=== PATIENT | male | born 1985 | race Caucasian/White ===

== ENCOUNTER 2018-11-21 12:38 | Emergency (ER) | payer MEDICAID ==
[2018-11-21] MEDS ORDERED: 0.9 % SODIUM CHLORIDE 1000ML 1,000 ML IV ONE (13:19)
[2018-11-21] MEDS ORDERED: PROMETHAZINE HCL 25 MG in 0.9 % SODIUM CHLORIDE 100ML 100 ML IVPB ONE (13:35)
[2018-11-21 13:36] LABS: HEMATOCRIT 48.5 % (42.0-52.0); HEMOGLOBIN 16.8 gm/dl (14.0-18.0); MEAN CELL VOLUME 86.6 fl (81-97); MEAN CORPUSCULAR HGB CONC 34.6 g/dl (32-36); MEAN PLATELET VOLUME 9.7 fl (7.4-10.4); PLATELET COUNT 370 K/uL (130-400); WHITE BLOOD COUNT W/O DIFF 7.3 K/uL (4.2-12.2)
[2018-11-21 13:36] LABS: URINE APPEARANCE CLEAR; URINE BILIRUBIN SMALL (NEGATIVE); URINE BLOOD NEGATIVE (NEGATIVE); URINE COLOR YELLOW; URINE GLUCOSE (UA) NEGATIVE (NEGATIVE); URINE KETONE NEGATIVE (NEGATIVE); URINE LEUKOCYTE ESTERASE NEGATIVE (NEGATIVE); URINE NITRITE NEGATIVE (NEGATIVE); URINE PROTEIN TRACE (NEGATIVE); URINE UROBILINOGEN 0.2 E.U./dL (0.20 - 1.00)
--- NOTE | 2018-11-21 13:41 | Emergency Department Record ---
History of Present Illness - General Chief Complaint: Abdominal Pain Stated Complaint: ABD PAIN/VOMITING FEVER Time Seen by Provider: 11/21/18 13:35 Mode of Arrival: Ambulatory - History of Present Illness Initial Comments: Pt with complaint of 3 days of vomiting followed by diarrhea. Continues daily after any attempt to eat of drink. Seen 2 days ago at Urgent Care without improvement. No fever. Pain in lower abdomen which is sharp in nature and comes and goes. No blood in stool or emesis. No recent illness, travel, AB unse, new foods. No sick contacts. No hx abd surgery, no DM or chronic disease. Non smoker that uses marijuana daily for anxiety. Social alcohol with no recent heavy alcohol use. Onset/Timin -: Days(s) Location: Periumbilical Radiation: LLQ, RLQ Severity scale (1-10): 6 Quality: Sharp, Stabbing Consistency: Intermittent Improves With: Nothing Worsens With: Nothing - Related Data Home Medications Medication Instructions Recorded Confirmed Last Taken Ondansetron HCl [Zofran] 1 tab PO Q8H 11/21/18 11/21/18 11/20/18 Previous Rx's Medication Instructions Recorded Promethazine HCl [Phenergan] 25 mg PO Q6HR PRN 4 Days #10 tablet 11/21/18 Allergies Allergy/AdvReac Type Severity Reaction Status Date / Time No Known Drug Allergies Allergy Verified 11/21/18 13:15 Travel Screening - Travel/Exposure Within Last 30 Days Have you traveled within the last 30 days?: No - Travel/Exposure Within Last Year Have you traveled outside the [place] in the last year?: No - Additonal Travel Details Have you been exposed to anyone with a communicable illness?: No Review of Systems Constitutional: Reports: Weakness. Denies: Chills, Fever Eyes: Denies: Eye discharge, Photophobia ENT: Denies: Congestion, Ear pain Respiratory: Denies: Cough, Dyspnea, Wheezes Cardiovascular: Denies: Arrhythmia, Chest pain, Syncope Endocrine: Reports: Polydipsia. Denies: Fatigue Gastrointestinal: Reports: As per HPI, Abdominal pain, Diarrhea, Nausea, Vomiting. Denies: Hematemesis, Hematochezia, Melena Genitourinary: Denies: Discharge, Frequency, Hematuria Musculoskeletal: Denies: Arthralgia, Gout Skin: Denies: Bruising Neurological: Denies: Abnormal gait, Numbness, Weakness Psychiatric: Denies: Anxiety Hematological/Lymphatic: Denies: Anemia Past Medical History - SOCIAL HISTORY Smoking Status: Former smoker Alcohol Use: Occasional Drug Use: Heavy Drug Use Detail:: Marijuana - RESPIRATORY Hx Respiratory Disorders: No - CARDIOVASCULAR Hx Cardio Disorders: No - NEURO Hx Neuro Disorders: No - GI Hx GI Disorders: Yes Hx Ulcer: Yes Comment:: frequent random diarrhea - Hx Genitourinary Disorders: No - ENDOCRINE Hx Endocrine Disorders: No - MUSCULOSKELETAL Hx Musculoskeletal Disorders: No - PSYCH Hx Psych Problems: Yes Hx Anxiety: Yes - HEMATOLOGY/ONCOLOGY Hx Hematology/Oncology Disorders: No Family Medical History Any Significant Family History?: No Physical Exam - General General Appearance: Alert, Oriented x3, Cooperative, No acute distress - Head Head exam: Atraumatic, Normal inspection - Eye Eye exam: Normal appearance, PERRL - ENT ENT exam: Normal exam, Mucous membranes moist, Normal external ear exam, Normal orophraynx, TM's normal bilaterally - Neck Neck exam: Normal inspection, Full ROM. negative: Tenderness - Respiratory Respiratory exam: Normal lung sounds bilaterally. negative: Respiratory distress - Cardiovascular Cardiovascular Exam: Regular rate, Normal rhythm, Normal heart sounds - GI/Abdominal GI/Abdominal exam: Soft, Normal bowel sounds, Tenderness. negative: Distended, Guarding, Rebound - Extremities Extremities exam: Normal inspection, Full ROM, Normal capillary refill. negative: Tenderness - Back Back exam: Reports: Normal inspection, Full ROM. Denies: Muscle spasm, Rash noted, Tenderness - Neurological Neurological exam: Alert, Normal gait, Oriented X3 - Psychiatric Psychiatric exam: Normal affect, Normal mood - Skin Skin exam: Normal color. negative: Rash Course Vital Signs 11/21/18 13:58 Temperature 98.3 F Pulse Rate 84 Respiratory 16 Rate Blood Pressure 134/83 Pulse Ox 96 - Reevaluation(s) Reevaluation #1: 11/21/18 14:10 Labs reviewed and normal. Pt feeling much improved with little "to no" abdominal pains. Continued IV hydration. Medical Decision Making - Lab Data Result diagrams: 11/21/18 13:14 11/21/18 13:14 Disposition Disposition: Discharge Clinical Impression: Gastroenteritis Disposition: Home, Self-Care Condition: (2) Stable Instructions: Clear Liquid Diet (ED), Gastroenteritis (ED) Additional Instructions: Use Phergan for nausea and a clear liquid diet for 24 hours. Increase diet as tolerated. Family doctor recheck in 1-2 days. Return to the ED at any time if worse or concerns. Prescriptions: Promethazine HCl [Phenergan] 25 mg PO Q6HR PRN 4 Days #10 tablet PRN Reason: Nausea/Vomiting Forms: Patient Portal Access Time of Disposition: 14:46 Quality - Quality Measures Quality Measures: N/A - Blood Pressure Screening Does Patient Have Any of the Following: No Blood Pressure Classification: Pre-Hypertensive BP Reading Systolic Measurement: 134 Diastolic Measurement: 83 Screening for High Blood Pressure: < Pre-Hypertensive BP, F/U Documented > [ G8950] Pre-Hypertensive Follow-up Interventions: Follow-up with rescreen every year.
[2018-11-21] MEDS ORDERED: 0.9 % SODIUM CHLORIDE 1,000 ML BAG IV ONE (13:45)
[2018-11-21 13:49] LABS: BLOOD UREA NITROGEN 15 mg/dL (6-20); CREATININE 0.8 mg/dL (0.7-1.2); EST GLOMERULAR FILTRATION RATE > 60 mL/min
[2018-11-21 13:50] LABS: TOTAL PROTEIN 7.5 g/dL (6.6-8.7)
[2018-11-21 13:51] LABS: PLATELET ESTIMATE NORMAL (NORMAL)
[2018-11-21 13:52] LABS: GLUCOSE,RANDOM 102 mg/dL (74-109)
[2018-11-21 13:54] LABS: ALB/GLOB RATIO 1.3 (1.1-1.8); ALBUMIN 4.3 g/dL (4.0-5.0); ALT/SGPT 17 U/L (<41); AST/SGOT 20 U/L (10.0-50.0)
[2018-11-21 13:55] LABS: ALKALINE PHOSPHATASE 66 U/L (55-149)
== END 2018-11-21 15:07 | disposition home or self-care (01) ==
LOC: ER 12:38
DX: K52.9 Noninfective gastroenteritis and colitis, unspecified (principal); R11.11 Vomiting without nausea; R10.33 Periumbilical pain; Z87.891 Personal history of nicotine dependence
CPT/HCPCS: 80053; 81003; 85027; 96361; 96365; 99284; J2550; J7030

== ENCOUNTER 2019-11-02 20:40 | Emergency (ER) | payer MEDICAID ==
[2019-11-02] MEDS ORDERED: DEXAMETHASONE SOD PHOSPHATE 10MG/ML VIAL PO ONE (20:48)
--- NOTE | 2019-11-02 20:53 | Emergency Department Record ---
History of Present Illness - General Chief Complaint: Ankle/Foot Injury Stated Complaint: RT BIG TOE PAIN Time Seen by Provider: 11/02/19 20:47 Source: Patient Mode of Arrival: Ambulatory Limitations: No limitations - History of Present Illness Initial Comments: 33 yo male presents with left first MTP pain. He denies any known trauma. The area has gradually become more painful with some mild redness. No streaking. The skin is intact. The area of pain, redness and swelling is isolated to the first MTP. No history of gout or other types of arthritis. He works a job on his feet for long hours. No medications and no allergies. MD Complaint: Other -: Days(s) Injury: Toes: Left Type of Injury: Unknown Place: Home Severity: Moderate Improves With: Immobilization Worsens With: Movement, Palpation, Weight bearing Context: Other Other Symptoms: Other Associated Symptoms: Able to partially bear weight - Related Data Previous Rx's Medication Instructions Recorded Methylprednisolone [Medrol Dose 4 mg PO DAILY #1 tab.barb 11/02/19 Pack] Naproxen [Naprosyn] 500 mg PO Q12H #20 tab. 11/02/19 Allergies Allergy/AdvReac Type Severity Reaction Status Date / Time No Known Drug Allergies Allergy Verified 11/02/19 21:06 Review of Systems Constitutional: Denies: Chills, Fever, Malaise, Weakness Eyes: Denies: Eye discharge ENT: Denies: Congestion, Throat pain Respiratory: Denies: Cough, Dyspnea Cardiovascular: Denies: Chest pain, Palpitations, Syncope Endocrine: Denies: Fatigue Gastrointestinal: Denies: Abdominal pain, Diarrhea, Nausea, Vomiting Genitourinary: Denies: Dysuria, Frequency, Hematuria Musculoskeletal: Reports: As per HPI, Arthralgia, Joint swelling Skin: Reports: As per HPI, Change in color. Denies: Bruising Neurological: Denies: Numbness, Tingling, Tremors Psychiatric: Denies: Anxiety Hematological/Lymphatic: Denies: Easy bleeding, Easy bruising Past Medical History - SOCIAL HISTORY Smoking Status: Former smoker Drug Use: Heavy Drug Use Detail:: Marijuana - RESPIRATORY Hx Respiratory Disorders: No - CARDIOVASCULAR Hx Cardio Disorders: No - NEURO Hx Neuro Disorders: No - GI Hx GI Disorders: Yes Hx Ulcer: Yes Comment:: frequent random diarrhea - Hx Genitourinary Disorders: No - ENDOCRINE Hx Endocrine Disorders: No - MUSCULOSKELETAL Hx Musculoskeletal Disorders: No - PSYCH Hx Psych Problems: Yes Hx Anxiety: Yes - HEMATOLOGY/ONCOLOGY Hx Hematology/Oncology Disorders: No Physical Exam - General General Appearance: Alert, Oriented x3, Cooperative, No acute distress Limitations: No limitations - Head Head exam: Atraumatic - Eye Eye exam: Normal appearance - ENT ENT exam: Normal exam Ear exam: Normal external inspection Nasal Exam: Normal inspection Mouth exam: Normal external inspection - Neck Neck exam: Normal inspection - Cardiovascular Peripheral Pulses: 2+: Dorsalis Pedis (L) - Rectal Rectal exam: Deferred - exam: Deferred - Extremities Extremities exam: Full ROM, Joint swelling, Normal capillary refill, Tenderness. negative: Normal inspection, Calf tenderness, Pedal edema Image of Feet: 1 - mild swelling, mild erythema, tender at the MTP, nail intact, CR is brisk, no mid foot tenderness, no calf tenderness - Neurological Neurological exam: Normal gait, Oriented X3. negative: Motor sensory deficit - Psychiatric Psychiatric exam: Normal affect, Normal mood. negative: Agitated, Anxious - Skin Skin exam: Erythema Course CBC is normal - Reevaluation(s) Reevaluation #1: 11/02/19 21:23 The Uric Acid is elevated at 8.3 Clinically this is consistent with gout and on lab He will be given a medrol dose pack and follow up with PCP He will be provided info on Gout 11/02/19 21:30 The XR was reviewed. The preliminary interpretation was no acute process Medical Decision Making - Lab Data Result diagrams: 11/02/19 20:51 11/02/19 20:51 Disposition Disposition: Discharge Clinical Impression: Gout Disposition: Home, Self-Care Condition: (1) Good Instructions: Low Purine Diet (ED), Gout (ED) Additional Instructions: Off work tonight Keep the foot elevated and avoid prolonged standing Take the prescription as directed Call your doctor for follow up in the next 2 days if not improving, and return if worse Prescriptions: Methylprednisolone [Medrol Dose Pack] 4 mg PO DAILY #1 tab.ds.pk Naproxen [Naprosyn] 500 mg PO Q12H #20 tab. Forms: Patient Portal Access Time of Disposition: 21:16 Quality - Quality Measures Quality Measures: N/A - Blood Pressure Screening Does Patient Have Any of the Following: No Blood Pressure Classification: Pre-Hypertensive BP Reading Systolic Measurement: 148 Diastolic Measurement: 82 Screening for High Blood Pressure: < Pre-Hypertensive BP, F/U Documented > [G8950] Pre-Hypertensive Follow-up Interventions: Referral to alternative/primary care provider.
[2019-11-02 20:59] LABS: BASO % 0.6 % (0-6); EOS % 2.3 % (0-6); GRAN % 59.5 % (47-80); HEMATOCRIT 43.7 % (42.0-52.0); HEMOGLOBIN 14.7 gm/dl (14.0-18.0); LYMPH % 27.6 % (16-45); MEAN CELL VOLUME 88.8 fl (81-97); MEAN CORPUSCULAR HEMOGLOBIN 29.9 pg (27-33); MEAN CORPUSCULAR HGB CONC 33.6 g/dl (32-36); MEAN PLATELET VOLUME 9.9 fl (7.4-10.4); PLATELET COUNT 345 K/uL (130-400); RED BLOOD COUNT 4.92 M/uL (4.40-5.70); RED CELL DISTRIBUTION WIDTH 13.1 % (11.5-14.5); WHITE BLOOD COUNT W/O DIFF 9.6 K/uL (4.2-12.2)
[2019-11-02 21:13] LABS: BLOOD UREA NITROGEN 9 mg/dL (6-20); CREATININE 0.8 mg/dL (0.7-1.2); EST GLOMERULAR FILTRATION RATE > 60 mL/min
[2019-11-02 21:16] LABS: GLUCOSE,RANDOM 101 mg/dL (74-109)
--- NOTE | 2019-11-02 21:28 | RADIOLOGY REPORT ---
EXAMINATION: Right Foot, Minimum Three Views EXAM DATE: 11/02/2019 9:13 PM TECHNIQUE: AP, lateral, and oblique INDICATION: right great toe pain COMPARISON: None ENCOUNTER: Initial FINDINGS: No acute bone abnormality. No fracture or discrete erosion. Normal alignment. Achilles enthesopathy. IMPRESSION: 1. No acute osseous findings. Dictated by: Carlin Coburn MD on 11/02/2019 9:23 PM. .
== END 2019-11-02 21:30 | disposition home or self-care (01) ==
LOC: ER 20:40
DX: M10.071 Idiopathic gout, right ankle and foot (principal); Z87.891 Personal history of nicotine dependence
CPT/HCPCS: 80048; 84550; 85025; 86140; 99284